=== PATIENT | male | born 2000 | race Caucasian/White ===

== ENCOUNTER 2022-05-11 14:54 | Emergency (ER) | payer SELFPAY ==
[~2022-05-11] VITALS: Ht 170.2 cm; Wt 122.5 kg
[2022-05-11 15:25] VITALS: BP 134/63
[2022-05-11 16:11] LABS: BUN/Creatinine Ratio 7.4; Potassium 3.6 mmol/L (3.5-5.1); Uric Acid 5.9 mg/dL (3.5-7.2)
[2022-05-11 16:13] LABS: Basophils # (auto) 0 10 ^3/uL (0-0.2); Basophils % (auto) 0.2 % (0.0-2.0); Eosinophils # (auto) 0.1 10 ^3/uL (0-0.8); Eosinophils % (auto) 0.5 % (0.0-7.0); Hematocrit 46.5 % (41.0-53.0); Hemoglobin 15.4 g/dL (13.5-17.5); Lymphocytes # (auto) 2.5 10 ^3/uL (0.4-5.4); Lymphocytes % (auto) 20.2 % (10.0-50.0); Mean Corpuscular Hemoglobin 29.7 pg (28.0-32.0); Mean Corpuscular Hgb Conc. 33.1 g/dL (32.0-36.0); Mean Corpuscular Volume 89.7 fL (80.0-100.0); Monocytes # (auto) 1.3 10 ^3/uL (0-1.3); Monocytes % (auto) 10.3 % (0.0-12.0); Neutrophils # (auto) 8.4 10 ^3/uL (1.6-8.6); Neutrophils % (auto) 68.8 % (37.0-80.0); Nucleated Red Blood Cells % 0.2 %; Red Blood Cells 5.19 10^6/uL (4.5-5.90); Red Cell Distribution Width 13.7 % (11.8-14.3); White Blood Cell 12.2 10^3/uL (4.4-10.8)
[2022-05-11] MEDS ORDERED: KETOROLAC TROMETH 60MG/2ML VIAL IM ONE (16:30)
[2022-05-11] MEDS ORDERED: cefTRIAXone SOD 1,000 MG VL IM ONE (16:30)
[2022-05-11] MEDS ORDERED: INDO50SU RE (16:48)
[2022-05-11] MEDS ORDERED: CEPH-510 PO (16:48)
[2022-05-11] MEDS ORDERED: IBUP800T27 PO (16:48)
[2022-05-11] MEDS ORDERED: KETO2CRE4 TOP (16:53)
== END 2022-05-11 17:04 | disposition home or self-care (01) ==
LOC: ER 14:54
DX: B35.3 Tinea pedis (principal); Z79.1 Long term (current) use of non-steroidal anti-inflammatories (NSAID); Z79.899 Other long term (current) drug therapy
CPT/HCPCS: 36415; 80048; 83605; 84550; 85025; 96372; 99284; J0696; J1885